=== PATIENT | female | born 1990 | race Caucasian/White ===

== ENCOUNTER 2019-10-06 01:01 | Inpatient (IN) | payer BC ==
[2019-10-06] MEDS ORDERED: ceFAZolin 2 GM in Premix Bag 1 BAG IV ONE (01:04)
[2019-10-06] MEDS ORDERED: Tranexamic Acid 1,000 MG in Sodium Chloride 0.9% 100 ML IV PRN ×2 (01:04→03:10)
[2019-10-06] MEDS ORDERED: Sodium Chloride 0.9% 10 ML Syringe FLUSH PRN (01:04)
[2019-10-06] MEDS ORDERED: Methylergonovine 0.2 MG Tab PO PRN (01:04)
[2019-10-06] MEDS ORDERED: Carboprost Tromethamine 250 MCG/1 ML Amp IM PRN ×2 (01:04→03:10)
[2019-10-06] MEDS ORDERED: Citric Acid/Sodium Citrate Solution 30 ML Cup PO ONE (01:04)
--- NOTE | 2019-10-06 01:07 | PCM.HPR ---
H & P Addendum review - H & P Addendum Review Date of Original H & P: 10/04/19 Date Reviewed: 10/06/19 Time Reviewed: 01:00 Patient was Examined: No Changes
[2019-10-06] MEDS ORDERED: Lactated Ringers 1,000 ML IV SCH (01:15)
[2019-10-06] MEDS ORDERED: Oxytocin/0.9 % Sodium Chloride 30 UNIT/500 ML BAG IV SCH (01:15)
[2019-10-06] MEDS ORDERED: Oxytocin/Normal Saline 60 UNIT/1,000 ML BAG ONE (01:17)
[2019-10-06] MEDS: Lactated Ringers 1,000 ML IV SCH ×5 (01:22→20:59)
--- NOTE | 2019-10-06 03:07 | PCM.PRNOTE ---
- Free Text/Narrative Note: Section Operative Report Date of Surgery: 10/06/2019 Surgeon: Anahi Borjas MD Launderette Attendant: Buddy Meléndez MD Pre-Operative Diagnosis: at 39w4d with PROM Breech presentation Post-Operative Diagnosis: Same Procedure Performed: Primary low transverse section Anesthesia: Spinal EBL: 650 mL IVF: 1000 mL Drains: Shetty catheter with 250 mL of urine output Specimens: None Complications: None apparent Findings: Normal uterus, tubes, and ovaries. Indication and Consent: The patient presented to floor today with PROM at midnight with meconium fluid. Patient was scheduled for scheduled at term due to breech presentation and failed external cephalic version. The patient understood that the risks of section include, but are not limited to, visceral or vascular injury, infection, blood loss and need for blood transfusion, prolonged hospitalization, and reoperation. The patient again stated understanding and desired to proceed. All questions were answered. Procedure in Detail: The patient was taken to the operating room where spinal anesthesia was placed and found to be adequate. 2 grams of cefazolin (Ancef) were given for infection prophylaxis. She was then prepped and draped in routine fashion in dorsal supine position with a left diaz tilt. Shetty catheter and pneumoboots were placed. A Pfannenstiel skin incision was made with a scalpel. The incision was carried down to the fascia sharply. The fascia was incised and extended laterally. The superior aspect of the fascia was grasped with Linh clamps; the underlying rectus muscle and pyramidalis was dissected off with sharp and blunt technique. In a similar fashion, the inferior aspect of the fascia was elevated with Linh clamps and the rectus muscle was dissected off. Hemostasis was achieved with the Bovie. The rectus musculature was in the midline down to the level of the pubic symphysis. Pre-peritoneal fatty tissue was bluntly dissected to expose the peritoneum. The peritoneum was found to be free of adherent bowel or bladder tissue and entered bluntly. The peritoneal opening was then extended superiorly and inferiorly to the bladder reflection with good visualization of the bladder. The Kentrell retractor was inserted. Intraabdominal survey revealed scant, clear peritoneal fluid and thinned-out lower uterine segment. The vesicouterine peritoneum was opened with a pickup and mets, and the bladder flap was developed. The lower uterine segment was incised with a scalpel. Scant meconium fluid was noted fluid was noted. The uterine incision was extended bluntly with lateral and upward traction. The fetus was in breech position. The rump was elevated out of the maternal pelvis, sacrum anterior in position, with special attention paid to avoid using the uterine incision as a fulcrum. The fetus was delivered to the level of the scapula with each leg delivering through the uterine incision. A blue towel was wrapped around the fetus and then the fetus was then rotated 90 degree to facilitate sweeping the anterior arm across its face to deliver through the incision. The fetus was then rotated 180 degrees to deliver the other arm in a similar fashion. The Gentle fundal pressure was applied to keep the fetus's neck in flexed position as it was delivered through the incision. The infant was delivered with minimal difficulty. Bulb suctioning of the 's nose and mouth was performed on the operative field. Cord blood was collected. The cord was clamped and cut in standard fashion, and the infant was handed over to the awaiting nursery staff. IV oxytocin was initiated to facilitate uterine contractions. The placenta was delivered intact with manual message of the uterine fundus along with gentle cord traction. The uterus was then exteriorized. The inside of the uterus was gently wiped with a lap sponge to assure complete removal of remaining products of conception. The uterine incision was closed with 0 - Vicryl suture in a running locked fashion. A second imbricating layer of 0- Monocryl was also placed. The incision was inspected and hemostasis was achieved. The ovaries and tubes were visualized and found to be normal. The uterus, tubes, and ovaries were returned to the abdominal cavity. The blood clots and fluid were wiped out of the abdomen and pelvis with moist laparotomy sponges. The uterine incision was re-inspected along with all other incised surfaces and good hemostasis was confirmed. The Kentrell retractor was removed. The fascia was then closed with 2-0 looped PDS suture with care not to include any underlying abdominal contents. The sub-cutaneous layer was reapproximated with suture. The skin was closed with 4-0 Monocryl suture on a Eliseo needle in a subcuticular fashion. Sponge and instrument counts were reported as correct times two. Pt tolerated procedure well and was taken to PACU in stable condition. Anahi Borjas MD
[2019-10-06] MEDS ORDERED: ePHEDrine 50 MG/ML SDV IVPUSH PRN (03:10)
[2019-10-06] MEDS ORDERED: Acetaminophen 325 MG Tab PO PRN (03:10)
[2019-10-06] MEDS ORDERED: Naloxone 2 MG/2 ML Syringe IVPUSH PRN (03:10)
[2019-10-06] MEDS ORDERED: Methylergonovine 0.2 MG/1 ML Amp IM PRN (03:10)
[2019-10-06] MEDS ORDERED: Misoprostol 400 MCG (4 X 100 MCG TAB) RECTAL PRN (03:10)
[2019-10-06] MEDS ORDERED: diphenhydrAMINE 50 MG/ML SDV IVPUSH PRN (03:10)
[2019-10-06] MEDS ORDERED: Ondansetron 4 MG/2 ML SDV IVPUSH PRN (03:10)
--- NOTE | 2019-10-06 03:10 | PCM.DEL ---
L & D Note - General Info Date of Service: 10/06/19 - Delivery Note Labor: Spontaneous Delivery Outcome: Livebirth Delivery Method: Spontaneous Vaginal Delivery-Single Presentation: Breech Nuchal Cord: Present, Reduced Anesthesia Type: Spinal Amniotic Fluid Description: Meconium Stained Placenta: Intact, Meconium Stained Cord: 3 Vessels Estimated Blood Loss: 650 Resuscitation Needed: Yes : Suctioned, Bulb Syringe, Stimulated, Warmed, Warmer Used Score 1 min: 8 Score 5 min: 9 Delivery Comments (Free Text/Narrative):: Please see procedure note - General Info Date of Service: 10/06/19 - Patient Data Weight - Most Recent: 123.377 kg Lab Results Last 24 Hours: Laboratory Results - last 24 hr 10/06/19 10/06/19 10/06/19 Range/Units 01:00 01:23 01:23 WBC 10.6 H (5.0-10.0) 10^3/uL RBC 4.34 (4.2-5.4) 10^6/uL Hgb 13.0 (12.0-16.0) g/dL Hct 37.9 (37.0-47.0) % MCV 87.3 (80-100) fL MCH 30.0 (27.0-34.0) pg MCHC 34.3 (33.0-35.0) g/dL Plt Count 261 (150-450) 10^3/uL Neut % (Auto) 64.8 (42.2-75.2) % Lymph % (Auto) 26.1 (20.5-50.1) % Mora % (Auto) 8.2 H (2-8) % Eos % (Auto) 0.7 L (1.0-3.0) % Baso % (Auto) 0.2 (0.0-1.0) % COVID-19 ([facility]ANCHESKA) Negative (NEGATIVE) Blood Type B POSITIVE Gel Antibody Screen Negative Med Orders - Current: Current Medications Carboprost Tromethamine (Hemabate Ds) 250 mcg IM ASDIRECTED PRN PRN Reason: Excessive vaginal bleeding Tranexamic Acid 1,000 mg/ (Sodium Chloride) 110 mls @ 660 mls/hr IV ONETIME PRN PRN Reason: Bleeding Oxytocin/Sodium Chloride (Oxytocin 30 Unit/500 Ml-Ns) 30 unit in 500 mls @ 2 mls/hr IV TITRATE CANDICE; Protocol Lactated Ringer's (Ringers, Lactated) 1,000 mls @ 125 mls/hr IV ASDIRECTED CANDICE Last Admin: 10/06/19 01:41 Dose: 125 mls/hr Documented by: Lactated Ringer's (Ringers, Lactated) 1,000 mls @ 500 mls/hr IV .BOLUS CANDICE Methylergonovine Maleate (Methergine) 0.2 mg PO ONETIME PRN PRN Reason: Excessive vaginal bleeding Sodium Chloride (Saline Flush) 10 ml FLUSH ASDIRECTED PRN PRN Reason: Keep Vein Open Discontinued Medications Citric Acid/Sodium Citrate (Bicitra Solution) 30 ml PO ONETIME ONE Stop: 10/06/19 01:05 Last Admin: 10/06/19 01:31 Dose: 30 ml Documented by: Cefazolin Sodium/Dextrose 2 gm (/ Premix) 50 mls @ 100 mls/hr IV ONETIME ONE Stop: 10/06/19 01:33 Last Admin: 10/06/19 01:50 Dose: 100 mls/hr Documented by: Oxytocin/Sodium Chloride (Pitocin In Ns 30 Unit/500 Ml) Confirm Administered Dose 60 unit in 1,000 mls @ as directed .ROUTE .STK-MED ONE Stop: 10/06/19 01:18 - Problem List & Annotations (1) Gestational diabetes SNOMED Code(s): 64086304 Code(s): O24.419 - GESTATIONAL DIABETES MELLITUS IN , UNSP CONTROL Status: Acute Current Visit: Yes (2) Breech presentation SNOMED Code(s): 2159644 Code(s): O32.1XX0 - MATERNAL CARE FOR BREECH PRESENTATION, UNSP Status: Acute Current Visit: No (3) care in third trimester SNOMED Code(s): 196614665, 10015900, 99176897, 176803611, 362254387 Code(s): Z34.93 - ENCNTR FOR SUPRVSN OF NORMAL PREG, UNSP, THIRD TRIMESTER Status: Acute Current Visit: No (4) Status post section SNOMED Code(s): 719757349, 071157728 Code(s): Z98.891 - HISTORY OF UTERINE SCAR FROM PREVIOUS SURGERY Status: Acute Current Visit: Yes - Problem List Review Problem List Initiated/Reviewed/Updated: Yes - My Orders Last 24 Hours: My Active Orders 10/06/19 01:04 Patient Status [ADT] Routine Non Stress Test [RC] PER UNIT ROUTINE Notify Provider Vital Signs OB [RC] ASDIRECTED Peripheral IV Care [RC] 06,14,22 RT Incentive Spirometry [RC] ASDIRECTED Vital Signs [RC] PER UNIT ROUTINE Carboprost Tromethamine [Hemabate DS] 250 mcg IM ASDIRECTED PRN Methylergonovine [Methergine] 0.2 mg PO ONETIME PRN Sodium Chloride 0.9% [Saline Flush] 10 ml FLUSH ASDIRECTED PRN Tranexamic Acid [Cyklokapron] 1,000 mg Sodium Chloride 0.9% [Normal Saline] 100 ml IV ONETIME Peripheral IV Insertion Adult [OM.PC] Routine Schedule Procedure [COMM] Per Unit Routine Resuscitation Status Routine 10/06/19 01:15 Lactated Ringers [Ringers, Lactated] 1,000 ml IV .BOLUS Lactated Ringers [Ringers, Lactated] 1,000 ml IV ASDIRECTED Oxytocin/0.9 % Sodium Chloride [Oxytocin 30 Unit/500 ML-NS] 30 unit in 500 ml IV TITRATE 10/06/19 Breakfast Nothing Per Oral Diet [DIET] - Assessment Assessment:: 29-year-old now status post primary section at 39w4d for breech presentation and PROM - Plan Plan:: 1. Initiate routine postoperative cares. 2. Mother plan to breastfeed 3. Repeat CBC tomorrow 4. Anticipate discharge 10/09/2019. Dr. Avila will assume care over the weekend. Anahi Borjas MD
[2019-10-06] MEDS ORDERED: Ketorolac 30 MG/ML SDV IVPUSH SCH (03:30)
[2019-10-06] MEDS: Simethicone 80 MG Tab.Chew PO SCH ×4 (08:31→20:36)
[2019-10-06] MEDS: Ketorolac 30 MG/ML SDV IVPUSH SCH ×3 (08:31→20:37)
[2019-10-06] MEDS: Ferrous Sulfate 325 MG Tab PO SCH (13:12)
[2019-10-06] MEDS: Prenatal Multivitamin with Calcium/Folic Acid/Iron Tab PO SCH (13:12)
[2019-10-06] MEDS ORDERED: Oxytocin/Normal Saline 30 UNIT/500 ML BAG IV ONE ×2 (15:41→15:42)
[2019-10-06] MEDS: Docusate Sodium 100 MG Cap PO PRN (20:36)
[2019-10-07] MEDS: Acetaminophen/oxyCODONE 325-5 MG Tab PO PRN ×5 (02:15→19:46)
[2019-10-07] MEDS: Ibuprofen 800 MG Tab PO PRN ×3 (05:53→22:39)
[2019-10-07] MEDS: Simethicone 80 MG Tab.Chew PO SCH ×4 (09:16→22:39)
[2019-10-07] MEDS: Prenatal Multivitamin with Calcium/Folic Acid/Iron Tab PO SCH (09:17)
[2019-10-07] MEDS: Ferrous Sulfate 325 MG Tab PO SCH (09:17)
--- NOTE | 2019-10-07 11:45 | PN ---
DATE: 10/07/2019 SUBJECTIVE: The patient seen on 10/07/2019 at [facility]. The patient is postoperative day 1 from a primary low-transverse C- section for breech presentation. Mom and baby are both doing well. She is ambulating, voiding, tolerating p.o., good pain control. The patient did have gestational diabetes but that was diet controlled. PHYSICAL EXAMINATION: Vital Signs: The patient is afebrile. Heart rate 86 to 102, blood pressure 104 to 122 systolic over 53 to 72 diastolic, respiratory rate 14 to 18, and O2 saturation 95% to 99% on room air. Abdomen: The patient's abdomen is benign. The dressing is intact. She will remove that in the shower today. The patient is B-positive, rubella immune. She was COVID negative. Hemoglobin prior to delivery was 13. CBC this morning shows a white count of 10.8, hemoglobin 10.4, and platelets 238. ASSESSMENT AND PLAN: Postoperative day 1 status post primary low-transverse C- section for breech presentation. Mom and baby are both doing well. We will continue postoperative care and likely discharge her tomorrow. [facility] /[id number]
[2019-10-07] MEDS: Docusate Sodium 100 MG Cap PO PRN (19:47)
[2019-10-08] MEDS: Acetaminophen/oxyCODONE 325-5 MG Tab PO PRN ×3 (00:12→10:50)
[2019-10-08] MEDS: Simethicone 80 MG Tab.Chew PO SCH (08:36)
[2019-10-08] MEDS: Ibuprofen 800 MG Tab PO PRN (08:36)
[2019-10-08] MEDS: Prenatal Multivitamin with Calcium/Folic Acid/Iron Tab PO SCH (08:38)
[2019-10-08] MEDS: Ferrous Sulfate 325 MG Tab PO SCH (08:38)
[2019-10-08] MEDS: Docusate Sodium 100 MG Cap PO PRN (08:41)
--- NOTE | 2019-10-08 11:04 | PN ---
DATE: 10/08/2019 SUBJECTIVE: The patient is postoperative day #2 from a primary due to breech presentation. She did have A1 gestational diabetes. Mom and baby are both doing well. She is breast feeding. She is ambulating, voiding, tolerating p.o., and good pain control. PHYSICAL EXAMINATION: Vital Signs: The patient is afebrile. Heart rate 86 to 100, blood pressure 120 to 147 systolic over 67 to 76 diastolic, respiratory rate 14 to 16, and O2 saturation 98% to 99%. Abdomen: Benign. Fundus is firm below the umbilicus. The incision is examined. Steri-Strips are intact. Incision is clean, dry, and intact. LABORATORY DATA: The patient's preoperative hemoglobin was 13, postoperative hemoglobin was 10.4. She is COVID negative. Blood type B-positive, rubella immune. ASSESSMENT AND PLAN: Postoperative day 2, status post primary section with A1 gestational diabetes. Mom and baby are both doing well. We will discharge her today with pelvic and abdominal rest. I did give her 20 oxycodones 5 mg. She will follow up with her primary in 2 and 6 weeks, and then I did recommend type 2 diabetes screening during her period due to her gestational diabetes. [facility] /[id number]
[2019-10-08] MEDS ORDERED: fentaNYL 100 MCG/2 ML SDV ONE (11:09)
[2019-10-08] MEDS ORDERED: Lactated Ringers 1,000 ML IV ONE (11:09)
[2019-10-08] MEDS ORDERED: Ketorolac 30 MG/ML SDV IVPUSH ONE (11:09)
[2019-10-08] MEDS ORDERED: Morphine PF 1 MG/ML Amp ONE (11:09)
[2019-10-08] MEDS ORDERED: ePHEDrine 50 MG/ML SDV IV ONE (11:09)
== END 2019-10-08 11:10 | disposition home or self-care (01) | DRG 540 ==
LOC: UNDOADMIN 01:01 → DL.OB 01:01
PROVIDERS: ADMIT Family Medicine; ATTEND Family Medicine
PROC: 10D00Z1 Extraction of Products of Conception, Low, Open Approach (ICD-10-PCS; principal; 2019-10-06)
DX: O32.1XX0 Maternal care for breech presentation, not applicable or unspecified (principal); Z3A.39 39 weeks gestation of pregnancy; Z37.0 Single live birth; O77.0 Labor and delivery complicated by meconium in amniotic fluid; O24.429 Gestational diabetes mellitus in childbirth, unspecified control; O69.81X0 Labor and delivery complicated by cord around neck, without compression, not applicable or unspecified; Z11.59 Encounter for screening for other viral diseases
CPT/HCPCS: 36415; 51701; 85025; 85027; 86850; 86900; 86901; A9270-GY; J0690; J1885; J2405; J2590; J7120; U0002

== ENCOUNTER 2024-09-08 10:03 | Inpatient (IN) | payer BC ==
[2024-09-08] MEDS ORDERED: Methylergonovine 0.2 MG Tab PO PRN (10:53)
[2024-09-08] MEDS ORDERED: Sodium Chloride 0.9% 10 ML Syringe FLUSH PRN (10:53)
[2024-09-08] MEDS ORDERED: Carboprost Tromethamine 250 MCG/1 ML Amp IM PRN (10:53)
[2024-09-08] MEDS: Lactated Ringers 1,000 ML IV SCH ×2 (10:53→11:20)
[2024-09-08] MEDS ORDERED: Promethazine 25 MG/ML SDV IM PRN (10:53)
[2024-09-08] MEDS ORDERED: Tranexamic Acid 1,000 MG in Sodium Chloride 0.9% 100 ML IV PRN (10:53)
[2024-09-08] MEDS ORDERED: Oxytocin 10 Units/1 ML SDV IM PRN (10:53)
[2024-09-08] MEDS ORDERED: Oxytocin/Lactated Ringers 30 UNIT/500 ML BAG IV SCH (11:00)
[2024-09-08 11:07] LABS: BASOPHILS PERCENT AUTO 0.2 % (0.0-1.0); EOSINOPHILS PERCENT AUTO 0.7 % (1.0-3.0); HEMATOCRIT 39.5 % (37.0-47.0); HEMOGLOBIN 13.3 g/dL (12.0-16.0); LYMPHOCYTES PERCENT AUTO 25.2 % (20.5-50.1); MEAN CORPUSCULAR HEMOGLOBIN 29.8 pg (27.0-34.0); MEAN CORPUSCULAR HGB CONC 33.7 g/dL (33.0-35.0); MEAN CORPUSCULAR VOLUME 88.4 fL (80-100); MONOCYTES PERCENT AUTO 6.5 % (2-8); NEUTROPHILS PERCENT AUTO 67.4 % (42.2-75.2); PLATELET COUNT,PLT 276 10^3/uL (150-450); RED BLOOD CELL COUNT 4.47 10^6/uL (4.2-5.4)
[2024-09-08] MEDS ORDERED: Bupivacaine 0.25% 10 ML SDV ONE ×3 (11:21→11:25)
[2024-09-08] MEDS ORDERED: Oxytocin/Normal Saline 30 UNIT/500 ML BAG ONE (11:24)
[2024-09-08] MEDS: ceFAZolin 2 GM Vial IVPUSH ONE (16:53)
[2024-09-08] MEDS: Misoprostol 100 MCG Tab RECTAL ONE (16:53)
[2024-09-08] MEDS ORDERED: Methylergonovine 0.2 MG/1 ML Amp IM PRN (17:03)
[2024-09-08] MEDS ORDERED: Ondansetron 4 MG/2 ML SDV IVPUSH PRN (17:03)
[2024-09-08] MEDS ORDERED: Acetaminophen 325 MG Tab PO PRN (17:03)
[2024-09-08] MEDS ORDERED: ePHEDrine 50 MG/ML SDV IVPUSH PRN (17:03)
[2024-09-08] MEDS ORDERED: diphenhydrAMINE 50 MG/ML SDV IVPUSH PRN (17:03)
[2024-09-08] MEDS ORDERED: Naloxone 2 MG/2 ML Syringe IVPUSH PRN (17:03)
[2024-09-08] MEDS ORDERED: Lactated Ringers 1,000 ML IV SCH (17:15)
[2024-09-08] MEDS: Ketorolac 30 MG/ML SDV IVPUSH SCH (18:30)
[2024-09-08] MEDS: Docusate Sodium 100 MG Cap PO PRN (19:45)
[2024-09-08] MEDS: Simethicone 80 MG Tab.Chew PO SCH (19:45)
[2024-09-08] MEDS: Sodium Chloride 0.9% 10 ML Syringe FLUSH SCH (20:32)
[2024-09-08] MEDS: Acetaminophen/oxyCODONE 325-5 MG Tab PO PRN (22:40)
[2024-09-09 07:38] LABS: HEMOGLOBIN 10.9 g/dL (12.0-16.0); MEAN CORPUSCULAR HEMOGLOBIN 29.8 pg (27.0-34.0); MEAN CORPUSCULAR VOLUME 90.2 fL (80-100); RED BLOOD CELL COUNT 3.66 10^6/uL (4.2-5.4); WHITE BLOOD CELL COUNT,WBC 15.7 10^3/uL (5.0-10.0)
[2024-09-09] MEDS: Prenatal Multivitamin with Calcium/Folic Acid/Iron Tab PO SCH (08:41)
[2024-09-09] MEDS: Ibuprofen 800 MG Tab PO SCH (14:43)
[2024-09-09] MEDS: Sertraline 50 MG Tab PO SCH (14:43)
[2024-09-10] MEDS: Take Home: Acetaminophen/oxyCODONE 325-5 MG, 5 Tab Pack PO ONE (12:20)
[2024-09-10] MEDS: Acetaminophen/oxyCODONE 325-5 MG Tab PO PRN (12:24)
== END 2024-09-10 12:34 | disposition home or self-care (01) | DRG 540 ==
LOC: DL.OB 10:03 → OBSVTOIN 10:53
PROVIDERS: ADMIT Family Medicine; ATTEND Family Medicine
PROC: 10D00Z1 Extraction of Products of Conception, Low, Open Approach (ICD-10-PCS; principal; 2024-09-08 12:00)
DX: O34.211 Maternal care for low transverse scar from previous cesarean delivery (principal); Z3A.39 39 weeks gestation of pregnancy; Z37.0 Single live birth; Z79.899 Other long term (current) drug therapy
CPT/HCPCS: 36415; 59025; 85025; 85027; 86850; 86900; 86901; 94010; A9270-GY; J1885; J7120